=== PATIENT | female | born 2000 | race African-American/Black ===

== ENCOUNTER 2018-08-22 09:05 | Emergency (ER) | payer OTHER ==
[2018-08-22 09:16] VITALS: BP 125/78; PULSE 91; TEMP 98.2; BMI 25.7
[2018-08-22] MEDS ORDERED: KETOROLAC TROMETHAMINE 30 MG/1 ML VIAL IM ONE (09:44)
[2018-08-22] MEDS ORDERED: CYCLOBENZAPRINE HCL 10 MG TABLET (FP) PO ONE (09:44)
[2018-08-22] MEDS ORDERED: CYCLOBENZAPRINE HCL 10 MG TABLET (FP) ONE (09:45)
[2018-08-22] MEDS ORDERED: KETOROLAC TROMETHAMINE 30 MG/1 ML VIAL ONE (09:45)
--- NOTE | 2018-08-22 10:20 | PDOC ---
History of Present Illness - General Chief Complaint: Pain, Acute Stated Complaint: Neck pain after stretching Time Seen by Provider: 08/22/18 09:34 History Source: Patient, Parent(s) Exam Limitations: No Limitations Past History - Past Medical History Allergies/Adverse Reactions: Allergies Allergy/AdvReac Type Severity Reaction Status Date / Time No Known Allergies Allergy Verified 08/22/18 09:16 Home Medications: Ambulatory Orders Cyclobenzaprine HCl [Flexeril -] 10 mg PO TID PRN #21 tablet 08/22/18 COPD: No - Suicide/Smoking/Psychosocial Hx Smoking History: Never smoked Information on smoking cessation initiated: No Hx Alcohol Use: No Drug/Substance Use Hx: No *Physical Exam - Vital Signs Last Vital Signs Temp Pulse Resp BP Pulse Ox 98.2 F 91 H 18 125/78 100 08/22/18 09:13 08/22/18 09:13 08/22/18 09:13 08/22/18 09:13 08/22/18 09:13 - Physical Exam General Appearance: No: Apparent Distress HEENT: positive: Pharynx Normal Neck: positive: Decreased range of motion (pain with turning neck to right), Tender lateral (along R traps). 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 NML intact, Fully Oriented, Alert, Normal Mood/ Affect, Motor Strength 5/5 Moderate Sedation - Procedure Monitoring Vital Signs: Procedure Monitoring Vital Signs Temperature 98.2 F 08/22/18 09:13 Pulse Rate 91 H 08/22/18 09:13 Respiratory Rate 18 08/22/18 09:13 Blood Pressure 125/78 08/22/18 09:13 O2 Sat by Pulse Oximetry (%) 100 08/22/18 09:13 ED Treatment Course - Medications Given in the ED: ED Medications Discontinued Medications Generic Name Dose Route Start Last Admin Trade Name Freq PRN Reason Stop Dose Admin Cyclobenzaprine HCl 10 mg 08/22/18 09:44 08/22/18 09:49 Flexeril - PO 08/22/18 09:45 10 mg ONCE ONE Administration Ketorolac Tromethamine 30 mg 08/22/18 09:44 08/22/18 09:49 Toradol Injection - IM 08/22/18 09:45 30 mg ONCE ONE Administration Medical Decision Making - Medical Decision Making 17 y/o F with no sig pmh presents with R neck pain from today. Woke up and while stretching, felt popping sensation in her neck. Denies trauma. Denies numbness/tingling/weakness of extremities, ESCOBAR. Given Toradol and Flexeril On reassessment, patient feeling a lot better Likely muscle strain Stable for d/c 08/22/18 10:15 *DC/Admit/Observation/Transfer Diagnosis at time of Disposition: Strain of neck Qualifiers: Encounter type: initial encounter Qualified Code(s): S16.1XXA - Strain of muscle, fascia and tendon at neck level, initial encounter - Discharge Dispostion Disposition: HOME Condition at time of disposition: Stable Decision to Admit order: No - Prescriptions Prescriptions: Cyclobenzaprine HCl [Flexeril -] 10 mg PO TID PRN #21 tablet PRN Reason: Muscle Spasms - Referrals Referrals: Naye Jordan MD [Primary Care Provider] - 3 days - Patient Instructions Printed Discharge Instructions: DI for Cervical Muscle Strain Additional Instructions: Thank you for choosing [facility]. It was a pleasure taking care of you. You may take Motrin 600 mg every 4 hours by mouth as needed for mild to moderate pain. Take Motrin with food. Take Flexeril as needed for muscle spasms. This medication can also make you drowsy so please be cautious with driving or performing heavy physical work. Apply warm compresses to your neck. Return to the Emergency Department if your symptoms worsen or persist or have other concerning symptoms - Post Discharge Activity
== END 2018-08-22 10:21 | disposition home or self-care (01) ==
LOC: JERFT 09:05
PROC: 3E0233Z Introduction of Anti-inflammatory into Muscle, Percutaneous Approach (ICD-10-PCS; principal; 2018-08-22)
DX: S16.1XXA Strain of muscle, fascia and tendon at neck level, initial encounter (principal)
CPT/HCPCS: 99281-25